=== PATIENT | female | born 1950 | race Caucasian/White ===

== ENCOUNTER 2017-08-31 20:13 | Observation (INO) | payer OTHER ==
[2017-08-31] MEDS ORDERED: NS 0.9% 1000 ML*IV.FLUID IV ONE (20:45)
[2017-08-31 21:27] LABS: Hematocrit 41 % (35-47); Hemoglobin 13.9 g/dl (12.0-16.0); Mean Corpuscular HGB Conc 34 g/dl (31-36); Mean Corpuscular Hemoglobin 30 pg (27-31); Mean Corpuscular Volume 90 fL (80-97); Mean Platelet Volume 8.9 um3 (7.4-10.4); Platelet Count 231 10^3/ul (150-450); Red Blood Count 4.62 10^6/ul (4.00-5.40); Red Cell Distribution Width 14 % (10.5-15)
--- NOTE | 2017-08-31 21:33 | ED ---
Neurological HPI - HPI Summary HPI Summary: This is scribe Ravindra Maxwell documenting for attending Dr. Ortega Smith MD. A 67 y/o female presents to ED c/o dizziness reaching 8/10 in severity. According to the patient, she has been experiencing intermittent dizziness for the past 2-3 weeks lasting about a minute, however the dizziness has become worst today. Additional symptoms include abdominal pain and appetite changes for the last 3 days (not currently). She stated that she was laying in bed when her head started hurting on Monday which led her to go to [facility] in [place]. No treatment was done at [facility]. She comes to the ED today because of headache and dizziness. Pt denies any chest pain, shakes, chills, burning/ pain with urination, fever or LOC. She characterizes the dizziness as "room- spinning" and "vertigo-like". She noted that she has trouble walking and standing/ambulance aggravates the symptoms. If she is laying down, she exhibits no dizziness. It was noted that in triage, the patients blood pressure was low, however, she noted that normally it is usually high. Pt was diagnosed with a UTI on 08/28/2017, at [facility]. She is currently on antibiotics. - History of Current Complaint Chief Complaint: EDDizziness Stated Complaint: DIZZINESS/FELL 2X Time Seen by Provider: 08/31/17 20:38 Hx Obtained From: Patient Onset/Duration: Sudden Onset, Started weeks ago, Still Present - Intermittent episodes, Worse Since - 2-3 weeks ago Timing: Intermittent Episodes Lasting: - 1 minute Current Severity: Severe - 8/10 Pain Intensity: 8 Pain Scale Used: 0-10 Numeric Character: Room Spinning, Other: - "Vertigo-like". - Allergy/Home Medications Allergies/Adverse Reactions: Allergies Allergy/AdvReac Type Severity Reaction Status Date / Time No Known Allergies Allergy Verified 08/10/15 00:05 Home Medications: Home Medications Atorvastatin* [Lipitor*] 40 mg PO DAILY 08/31/17 [History Confirmed 08/31/17] Gabapentin CAP(*) [Neurontin 100 mg CAP(*)] 200 mg PO BID 08/31/17 [History Confirmed 08/31/17] Hydrochlorothiazide TAB* [Hydrodiuril TAB*] 25 mg PO DAILY 08/31/17 [History Confirmed 08/31/17] Lisinopril TAB* [Prinivil TAB*] 10 mg PO DAILY 08/31/17 [History Confirmed 08/31] Metoprolol Succinate XL TAB* [Toprol XL TAB*] 25 mg PO DAILY 08/31/17 [History Confirmed 08/31/17] Omeprazole CAP* [Prilosec CAP* 20 MG] 20 mg PO BID 08/31/17 [History Confirmed 08/31/17] glipiZIDE TAB* [Glucotrol TAB*] 5 mg PO DAILY 08/31/17 [History Confirmed ] Aspirin 81 mg CHEW TAB* 81 mg PO DAILY 09/01/17 [History Confirmed 09/01/17] Ciprofloxacin HCl [Cipro 500 MG TAB] 500 mg PO TID 09/01/17 [History Confirmed 09/01/17] metFORMIN* [Glucophage 500 MG TAB *] 500 mg PO BID 09/01/17 [History Confirmed 09/01/17] PMH/Surg Hx/FS Hx/Imm Hx Endocrine/Hematology History: Denies: Hx Diabetes Respiratory History: Denies: Hx Asthma - Surgical History Surgery Procedure, Year, and Place: Tubal Ligation - approximately 1984, [facility] Infectious Disease History: No Infectious Disease History: Denies: Traveled Outside the [place] in Last 30 Days - Family History Known Family History: Negative: Diabetes - Social History Alcohol Use: unable to assess Substance Use Type: Reports: None Hx Tobacco Use: No Smoking Status (MU): Unknown if Ever Smoked Review of Systems Positive: Chills, Other - NEGATIVE: Shakes. Negative: Fever Negative: Chest Pain Positive: Other - NEGATIVE: Appetite changes. Negative: Abdominal Pain Negative: burning, pain Neurological: Other - POSITIVE: Dizziness; NEGATIVE: LOC Negative: Headache All Other Systems Reviewed And Are Negative: Yes Physical Exam - Summary Physical Exam Summary: Appearance: Well-appearing, Well-nourished, lying in bed comfortably Skin: Warm, dry, no obvious rash Eyes: sclera anicteric, no conjunctival pallor ENT: mucous membranes moist, pharynx appears normal Neck: Supple, nontender Respiratory: Clear to auscultation, no signs of respiratory distress Cardiovascular: Normal S1, S2. No murmurs. Normal distal pulses in tibial and radial bilaterally. Abdomen: Soft, nontender, normal active bowel sounds present Musculoskeletal: Normal, Strength/ROM Intact Neurological: A&Ox3, awake and alert, mentation is normal, speech is fluent and appropriate Psychiatric: affect is normal, does not appear anxious or depressed GCS: 15 Triage Information Reviewed: Yes Vital Signs On Initial Exam: Initial Vitals Temp Pulse Resp BP Pulse Ox 97.6 F 70 14 80/54 95 08/31/17 20:25 08/31/17 20:25 08/31/17 20:25 08/31/17 20:25 08/31/17 20:25 Vital Signs Reviewed: Yes Diagnostics - Vital Signs Vital Signs Temp Pulse Resp BP Pulse Ox 08/31/17 20:25 97.6 F 70 14 80/54 95 - Laboratory Lab Results: Lab Results 08/31/17 Range/Units 21:15 WBC 12.0 H (3.5-10.8) 10^3/ul RBC 4.62 (4.00-5.40) 10^6/ul Hgb 13.9 (12.0-16.0) g/dl Hct 41 (35-47) % MCV 90 (80-97) fL MCH 30 (27-31) pg MCHC 34 (31-36) g/dl RDW 14 (10.5-15) % Plt Count 231 (150-450) 10^3/ul MPV 8.9 (7.4-10.4) um3 Neut % (Auto) Pending Lymph % (Auto) Pending Harvey % (Auto) Pending Eos % (Auto) Pending Baso % (Auto) Pending Absolute Neuts (auto) Pending Absolute Lymphs (auto) Pending Absolute Monos (auto) Pending Absolute Eos (auto) Pending Absolute Basos (auto) Pending Absolute Nucleated RBC Pending Nucleated RBC % Pending Result Diagrams: 08/31/17 21:15 09/01/17 15:22 Lab Statement: Any lab studies that have been ordered have been reviewed, and results considered in the medical decision making process. - CT BRAIN CT CT Interpretation Completed By: Radiologist - 1. No evidence of acute intracranial hemorrhage. No intracranial mass or obstructive hydrocephalus. 2. Low-density area in the anterior aspect of the left basal ganglia and consistent with an old infarct. ED PHYSICIAN REVIEWED THIS RADIOLOGY REPORT. - EKG 2038 Cardiac Rate: NL - 67 BPM EKG Rhythm: Sinus Rhythm Re-Evaluation - Re-Evaluation First Eval Re-Evaluation Time: 20:16 Change: Unchanged Course/Dx - Course Course Of Treatment: This is a 67-year-old woman who came to the ED with a chief complaint of dizziness of a vertiginous character. There is no concern at this point for a central cause of her vertigo, however she also has had some intermittent hypotension and is being treated for UTI. Her urinalysis here still shows evidence of infection. Her lactate is only minimally elevated, and the patient does not appear septic, however she probably should be admitted for observation and a dose of IV antibiotics. I will discuss the case with the hospitalist covering tonight. - Diagnoses Provider Diagnoses: UTI (urinary tract infection), Hypotension - Physician Notifications Discussed Care Of Patient With: Kenyatta Locke Time Discussed With Above Provider: 02:20 Instructed by Provider To: Other - Accepts for admission. Discharge - Sign-Out/Discharge Documenting (check all that apply): Patient Departure - ADMIT - Discharge Plan Condition: Stable Disposition: ADMITTED TO [facility] - Billing Disposition and Condition Condition: STABLE Disposition: Admitted to [facility]
[2017-08-31 21:46] LABS: EGFR Non-African American 12.7 (>60)
[2017-08-31 22:03] LABS: ABS Basophils 0.1 10^3/ul (0-0.2); ABS Eosinophils 0.2 10^3/ul (0-0.6); ABS Lymphocytes 3.8 10^3/ul (1.0-4.8); ABS Monocytes 1.8 10^3/ul (0-0.8); ABS Neutrophils 6.1 10^3/ul (1.5-7.7); ABS Nucleated RBC 0 10^3/ul; Eosinophil % 1.3 % (0-6); Nucleated Red Blood Cells % 0.1
[2017-08-31] MEDS ORDERED: Meclizine TAB* 12.5 MG PO ONE (22:09)
[2017-08-31 23:31] LABS: Urine Appearance Cloudy; Urine Blood Negative (Negative); Urine Color Amber; Urine Ketones Negative (Negative); Urine Protein Negative (Negative); Urine Red Blood Cell Trace(0-2/hpf) (Absent); Urine Specific Gravity 1.019 (1.010-1.030); Urine Urobilinogen Negative (Negative); Urine White Blood Cell 3+(>20/hpf) (Absent)
[2017-09-01] MEDS ORDERED: cefTRIAXone(*) 1 GM in NS 0.9% 50 ML* 50 ML IVPB ONE (01:46)
[2017-09-01] MEDS ORDERED: Ondansetron INJ* 2 MG/ML VIAL IV PRN (03:49)
[2017-09-01] MEDS ORDERED: Morphine INJ** 4 MG/ML 1 ML CARPUJECT IV PRN (03:49)
[2017-09-01] MEDS ORDERED: Dextrose 50% Syringe 50 ML* 25 GM/50 ML SYRINGE IV PUSH PRN (04:16)
[2017-09-01] MEDS: Heparin VIAL(*) 5000 UNITS/ML VIAL (FIVE THOUSAND) SUBCUT SCH ×3 (05:24→22:35)
[2017-09-01] MEDS: NS 0.9% 1000 ML* 1,000 ML IV SCH ×3 (05:25→21:45)
--- NOTE | 2017-09-01 07:22 | RAD ---
INDICATION: Vertigo for 3 weeks. COMPARISON: Comparison is made with a prior CT of the brain from April 11, 2015. TECHNIQUE: Contiguous axial sections of the brain were obtained from the skull base to the vertex without contrast. FINDINGS: The ventricles, cisterns and sulci are enlarged consistent with age-related atrophy. There are small areas of decreased density in the subcortical and periventricular white matter suggestive of mild chronic small vessel ischemic changes. There is a small focal area of decreased density present adjacent to the left caudate nucleus head possibly representing an old lacunar infarct. There is no evidence for hemorrhage. No significant focal osseous abnormality is seen. The visualized portion of the paranasal sinuses and mastoid air cells appear clear. IMPRESSION: 1. NO EVIDENCE FOR GROSS ACUTE INFARCT, MASS EFFECT OR HEMORRHAGE. 2. 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
[2017-09-01] MEDS: Insulin LISPRO* 1 UNITS UNIT SUBCUT SCH ×4 (08:05→20:28)
--- NOTE | 2017-09-01 08:07 | PN ---
Subjective Date of Service: 09/01/17 Interval History: Patient seen and examined at bedside. Denies fever, chills, shortness of breath , chest discomfort, N/V/D, urinary symptoms (urgency, increased frequency, dysuria). Pt states that she has low back pain from the bed. She reports feeling much better than when she came in and would like to go home later today if possible. Family History: Unchanged from Admission Social History: Unchanged from Admission Past Medical History: Unchanged from Admission Objective Active Medications: Atorvastatin Calcium (Lipitor*) 40 mg PO DAILY [facility] Dextrose (D50w Syringe 50 Ml*) 12.5 gm IV PUSH .FOR FS < 60 - SS PRN Reason: FS < 60 Gabapentin (Neurontin Cap(*)) 200 mg PO BID [facility] Heparin Sodium (Porcine) (Heparin Vial(*)) 5,000 units SUBCUT Q8HR [facility] Sodium Chloride (Ns 0.9% 1000 Ml*) 1,000 mls @ 100 mls/hr IV PER RATE [facility] Ceftriaxone Sodium 1 gm/ (Sodium Chloride) 50 mls @ 200 mls/hr IVPB Q24H [facility] Insulin Human Lispro (Humalog*) 0 units SUBCUT ACHS JAIME; Protocol Metoprolol Succinate (Toprol Xl Tab*) 25 mg PO DAILY [facility] Morphine Sulfate (Morphine Inj (Syringe)) 2 mg IV Q4H PRN Reason: PAIN - MILD Omeprazole (Prilosec Cap*) 20 mg PO BID [facility] Ondansetron HCl (Zofran Inj*) 4 mg IV Q6H PRN Reason: NAUSEA Vital Signs - 8 hr 09/01/17 09/01/17 09/01/17 00:13 00:42 01:00 Temperature Pulse Rate 71 71 70 Respiratory 19 12 22 Rate Blood Pressure 102/60 101/60 (mmHg) O2 Sat by Pulse 100 98 97 Oximetry 09/01/17 09/01/17 09/01/17 01:13 01:43 02:00 Temperature Pulse Rate 71 73 73 Respiratory 10 13 16 Rate Blood Pressure 112/72 113/62 (mmHg) O2 Sat by Pulse 98 95 97 Oximetry 09/01/17 09/01/17 09/01/17 02:12 02:44 03:00 Temperature Pulse Rate 74 69 69 Respiratory 7 16 18 Rate Blood Pressure 110/62 108/65 (mmHg) O2 Sat by Pulse 96 97 98 Oximetry 09/01/17 09/01/17 09/01/17 03:13 03:43 04:00 Temperature Pulse Rate 67 66 63 Respiratory 17 18 14 Rate Blood Pressure 106/64 99/62 (mmHg) O2 Sat by Pulse 97 96 97 Oximetry 09/01/17 09/01/17 09/01/17 04:08 04:13 04:40 Temperature 98.9 F 97.3 F Pulse Rate 66 65 71 Respiratory 20 16 20 Rate Blood Pressure 122/67 113/69 113/69 (mmHg) O2 Sat by Pulse 98 97 98 Oximetry Oxygen Devices in Use Now: None Appearance: NAD, sitting up in bed Ears/Nose/Mouth/Throat: Mucous Membranes Moist Respiratory: Symmetrical Chest Expansion and Respiratory Effort, Clear to Auscultation Cardiovascular: NL Sounds; No Murmurs; No JVD, RRR Extremities: No Edema Skin: No Rash or Ulcers Neurological: Alert and Oriented x 3, NL Muscle Strength and Tone Lines/Tubes/Other Access: Clean, Dry and Intact Peripheral IV - site benign Nutrition: Taking PO's Result Diagrams: 08/31/17 21:15 08/31/17 21:15 Additional Lab and Data: . Assess/Plan/Problems-Billing Assessment: Ms. Machado is a 67 yo female with PMH singificant for HTN, HLD, diverticulitis and DM who presented to the emergency room with complaints of falls, lightheadedness and recent dx of UTI. - Patient Problems (1) Acute renal failure Comment: - Suspect secondary to dehydration - Continue IVFs (2) UTI (urinary tract infection) Comment: - Afebrile, mild leukocytosis - No sepsis at this time - 08/28 urine culture with E coli that was pansensitive - Blood cultures, pending - Urine culture pending at this time - Continue ceftriaxone (3) Hypotension Comment: - BP improving - Suspect secondary to poor PO intake while being on multiple BP medications - Continue to monitor BP and hold Lisinopril and HCTZ (4) Lactic acidosis Code(s): E87.2 - ACIDOSIS SNOMED Code(s): 98801608 Comment: - Resolved with IVFs (5) Diabetes Code(s): E11.9 - TYPE 2 DIABETES MELLITUS WITHOUT COMPLICATIONS SNOMED Code(s) : 28175586 Comment: - Glucose 70-100's - Continue Lispro SS - Resume metformin and glipizide at discharge (6) HTN (hypertension) Code(s): I10 - ESSENTIAL (PRIMARY) HYPERTENSION SNOMED Code(s): 48151476 Comment: - SBP 90-120's - Continue metoprolol (with hold parameters) - Hols lisinopril and HCTZ (7) HLD (hyperlipidemia) Code(s): E78.5 - HYPERLIPIDEMIA, UNSPECIFIED SNOMED Code(s): 92805789 Comment: - Continue Atorvastatin (8) DVT prophylaxis Code(s): PLV7074 - SNOMED Code(s): 112579716 Comment: - SQ heparin (9) Full code status Code(s): Z78.9 - OTHER SPECIFIED HEALTH STATUS SNOMED Code(s): 956806666 Status and Disposition: OBV. Discharge to home when medically stable.
--- NOTE | 2017-09-01 08:09 | RAD ---
INDICATION: Abdominal pain. Acute renal failure. Question urolithiasis. COMPARISON: August 10, 2015 CT TECHNIQUE: Multidetector CT images were obtained from the lung bases to the ischial tuberosities. Evaluation of the viscera is limited without IV contrast. Multiplanar reformation. REPORT: Cardiomegaly and coronary artery calcifications. Clear visualized lung bases. Decreased density of the liver consistent with hepatosteatosis with focal sparing at the gallbladder fossa. No focal liver lesions evident. Normally distended gallbladder with dependent intermediate density contents which may represent stones or sludge. Negative for biliary dilatation. Unremarkable pancreas and spleen. Negative for CT abnormality of the upper GI, small bowel, or appendix. Moderate colonic diverticulosis without findings of acute diverticulitis. Negative for ascites or free air. Small fat-containing supraumbilical ventral hernia and moderate umbilical level fat-containing hernia without inflammatory change. Normal adrenal glands. Negative for urolithiasis or hydronephrosis. No conspicuous focal renal lesions. Unremarkable partially distended urinary bladder. Unremarkable anteverted uterus and adnexal regions. Negative for lymphadenopathy. Normal diameter abdominal aorta and iliac arteries with mild calcific plaque. Physiologic partial distention of the IVC. Negative for suspicious osseous lesions. IMPRESSION: #. Hepatosteatosis. #. Probable sludge or stones in the gallbladder; consider ultrasound for further assessment if deemed appropriate. #. Negative for biliary dilatation. #. Negative for urolithiasis or hydronephrosis. Negative for renal cortical atrophy. #. Atherosclerotic plaque. Negative for aneurysm of the abdominal aorta. Negative for conspicuous calcific plaque at the origins of the renal arteries. R0
[2017-09-01] MEDS: Gabapentin CAP(*) 100 MG PO SCH ×2 (09:52→20:28)
[2017-09-01] MEDS: Metoprolol Succinate XL TAB* 25 MG PO SCH (09:53)
[2017-09-01] MEDS: Omeprazole CAP* 20 MG PO SCH ×2 (09:53→20:28)
[2017-09-01] MEDS: Atorvastatin* 40 MG TAB PO SCH (09:53)
--- NOTE | 2017-09-01 11:19 | HP ---
CC: Dr. Salinas * HISTORY AND PHYSICAL: DATE OF ADMISSION: 09/01/17 PRIMARY CARE PROVIDER: Dr. Salinas. CHIEF COMPLAINT: Fall and dizziness. HISTORY OF PRESENT ILLNESS: Ms. Machado is a 67-year-old female with a history of type 2 diabetes, hypertension, and hyperlipidemia, who on 08/28/17 was diagnosed with urinary tract infection. The patient states that for the last 3 to 4 days she has had essentially no appetite whatsoever. She has had severe abdominal pain that had been sharp across her abdomen. She states that when she woke up on the morning prior to admission she noted the pain was unexpectedly gone and she finally had an appetite, however, again this after 3 to 4 days of not really eating or drinking much. The patient states that on the day prior to admission she was getting up and walking when she suddenly felt very dizzy. She was able to steady herself, initially on railing, however , with the second episode of dizziness that she had, she fell to the ground. She denied any loss of consciousness. At this point, the patient states that the dizziness has resolved. PAST MEDICAL HISTORY: 1. Type 2 diabetes. 2. Hypertension. 3. Hyperlipidemia. PAST SURGICAL HISTORY: Tubal ligation. MEDICATIONS: 1. Glipizide 5 mg p.o. daily. 2. Hydrochlorothiazide 25 mg p.o. daily. 3. Lisinopril 10 mg p.o. daily. 4. Metformin 500 mg p.o. b.i.d. 5. Lipitor 40 mg p.o. daily. 6. Gabapentin 200 mg p.o. b.i.d. 7. Metoprolol XL 25 mg p.o. daily. 8. Omeprazole 20 mg p.o. b.i.d. ALLERGIES: No known drug allergies. FAMILY HISTORY: Mom at age of 85 with complications from diabetes. Dad in the 70s, he also had diabetes. SOCIAL HISTORY: The patient is a nonsmoker. She does not drink alcohol. She is housewife. She is . She has 3 children. She indicates her youngest daughter, Martha Hawley, is her healthcare proxy. REVIEW OF SYSTEMS: Complete 11-system review of systems is obtained. Pertinent positives and negatives are as per HPI and in addition, the patient does state that she has had sweats and chills over the last few days; otherwise review of systems is negative. PHYSICAL EXAMINATION GENERAL: The patient is a well-developed, obese, middle-aged female seen lying in the stretcher, in no acute distress. VITAL SIGNS: Blood pressure 108/65, pulse 69, respirations 16, temp 97.6, O2 sat 97% on 2 L. HEENT: Pupils are equal and round. Extraocular muscles are intact. Oropharynx is clear. Oral mucosa is moist. There is no submandibular, cervical , or supraclavicular adenopathy. Thyroid is not enlarged. No thyroid nodules are noted. PULMONARY: There are few crackles at the bases bilaterally. CARDIAC: Normal S1, S2. Regular rate and rhythm. I do not appreciate any murmurs. There is no lower extremity edema. ABDOMEN: Bowel sounds are present. Abdomen is soft, nondistended. She is mildly tender to palpation in the right upper quadrant. There is negative Cortes sign. MUSCULOSKELETAL: There is no cyanosis or clubbing of the digits. There is full active range of motion of all 4 extremities. NEUROLOGIC: Cranial nerves II through XII are grossly intact. Sensation is intact to light touch throughout. Strength is 5/5 and symmetric in both upper and lower extremities bilaterally. PSYCH: The patient is alert. She is oriented x3. Affect appears appropriate. SKIN: Warm and dry. There are no rashes. DIAGNOSTIC STUDIES/LAB DATA: WBC 12.0, hemoglobin 13.9, hematocrit 41, platelets 231. Sodium 135; potassium 4.1; chloride 99; CO2 of 26; BUN 58; creatinine 3.60; glucose 75; lactic acid 2.1, recheck down to 1.7, calcium 9.5. Bilirubin 0.4, AST 24, ALT 31, alk phos 45. Albumin 4.0. Urinalysis reveals cloudy urine with specific gravity of 1.019, positive for nitrites, leukocyte esterase, white blood cells, bacteria, and hyaline cast. EKG reveals normal sinus rhythm without any acute ST-T wave abnormalities. CT brain: No evidence of acute intracranial hemorrhage, no intracranial mass or obstructive hydrocephalus. Low density area in the anterior aspect of the left basal ganglia consistent with an old infarct. ASSESSMENT AND PLAN: Ms. Machado is a 67-year-old female with history of hypertension, type 2 diabetes, and hyperlipidemia, who presents to the emergency room with complaints of dizziness and fall and was found to be hypotensive with persistent urinary tract infection. 1. Hypotension. I suspect the patient's hypotension is related to very poor oral intake over the last 3 to 4 days. The patient does have urinary tract infection; however, she does not appear to be septic from this. The patient will receive normal saline at 100 mL per hour. She has already received 1 L in the emergency room. I am going to hold her lisinopril and hydrochlorothiazide given her renal failure. We will monitor her blood pressure. I had placed hold parameters on her metoprolol XL. 2. Acute renal failure. The patient's baseline creatinine is not completely clear but likely around 1.1. The creatinine today is markedly elevated at 3.6 with hyaline cast on urinalysis. This is likely secondary to prerenal state. It could be a component of acute tubular necrosis as the patient found to have been with poor oral intake for several days. The patient will be receiving IV fluids as above. Additionally, I will hold the patient's metformin, lisinopril , and hydrochlorothiazide, all of which may have contributed as well. 3. Urinary tract infection. The patient was diagnosed of UTI on 08/28/17. She was started on ciprofloxacin. She states that she started the medication right after it was prescribed. Her urinalysis is still markedly abnormal. She grew E. coli from the urine sample on the . This was pansensitive and should have responded to Cipro she was started on, however, it appears that is not the case. The patient received ceftriaxone in the emergency room and we will continue on this. Additionally, I will obtain a CT scan without contrast of the abdomen and pelvis to evaluate for possible kidney stone especially given the pain that she had for the 3 to 4 days prior and to ensure that there is no evidence of renal abscess or pyelonephritis, which both seem unlikely. 4. Type 2 diabetes. The patient's blood sugar was normal on labs obtained in the emergency room. I am going to hold her glipizide and metformin. She will be placed on lispro sliding scale. 5. Hyperlipidemia. We will continue Lipitor. 6. DVT prophylaxis. According to the Adult Thrombosis Prophylaxis Risk Factor Assessment Guide, the patient has a total risk factor score of 3, making her high risk. She will be placed on heparin 5000 units subcutaneous q.8 hours. 7. Code status is full. TIME SPENT: Sixty-five minutes was spent admitting this patient, of which greater than half was spent [id number] with the patient reviewing her history and performing physical exam. [id number]/[facility] #: [id number] ARNEL
[2017-09-01 16:09] LABS: EGFR Non-African American 30.2 (>60)
[2017-09-01] MEDS: Nystatin TOP POWDER* 15 GM BTL TOPICAL SCH ×2 (16:49→20:51)
[2017-09-02] MEDS ORDERED: cefTRIAXone(*) 1 GM in NS 0.9% 50 ML* 50 ML IVPB SCH (03:00)
[2017-09-02] MEDS: Heparin VIAL(*) 5000 UNITS/ML VIAL (FIVE THOUSAND) SUBCUT SCH (05:48)
[2017-09-02 06:20] LABS: Hematocrit 38 % (35-47); Hemoglobin 12.8 g/dl (12.0-16.0); Mean Corpuscular HGB Conc 34 g/dl (31-36); Mean Corpuscular Hemoglobin 30 pg (27-31); Mean Corpuscular Volume 90 fL (80-97); Platelet Count 174 10^3/ul (150-450); Red Blood Count 4.25 10^6/ul (4.00-5.40); Red Cell Distribution Width 14 % (10.5-15); White Blood Count 6.6 10^3/ul (3.5-10.8)
[2017-09-02 06:38] LABS: EGFR Non-African American 41.1 (>60)
[2017-09-02 06:46] LABS: ABS Basophils 0 10^3/ul (0-0.2); ABS Eosinophils 0.2 10^3/ul (0-0.6); ABS Lymphocytes 2.4 10^3/ul (1.0-4.8); ABS Monocytes 0.8 10^3/ul (0-0.8); ABS Neutrophils 3.2 10^3/ul (1.5-7.7); ABS Nucleated RBC 0 10^3/ul
[2017-09-02 06:48] LABS: ABS Basophils 0.1 10^3/ul (0-0.2); ABS Neutrophils 3.2 10^3/ul (1.5-7.7); Monocytes % 5 % (0-7)
[2017-09-02] MEDS: Insulin LISPRO* 1 UNITS UNIT SUBCUT SCH ×2 (07:37→10:46)
[2017-09-02] MEDS: NS 0.9% 1000 ML* 1,000 ML IV SCH (07:57)
[2017-09-02] MEDS: Metoprolol Succinate XL TAB* 25 MG PO SCH (07:58)
[2017-09-02] MEDS: Omeprazole CAP* 20 MG PO SCH (07:59)
[2017-09-02] MEDS: Atorvastatin* 40 MG TAB PO SCH (07:59)
[2017-09-02] MEDS: Gabapentin CAP(*) 100 MG PO SCH (07:59)
[2017-09-02] MEDS: Nystatin TOP POWDER* 15 GM BTL TOPICAL SCH (08:05)
--- NOTE | 2017-09-02 08:14 | PN ---
Subjective Date of Service: 09/02/17 Interval History: Patient seen and examined at bedside. Denies fever, chills, shortness of breath , chest discomfort, N/V/D, urinary symptoms, abdominal pain. Pt states that she is feeling well this morning and is anxious to get home today. Family History: Unchanged from Admission Social History: Unchanged from Admission Past Medical History: Unchanged from Admission Objective Active Medications: Aspirin (Aspirin 81 Mg Chew Tab*) 81 mg PO DAILY [facility] Atorvastatin Calcium (Lipitor*) 40 mg PO DAILY [facility] Dextrose (D50w Syringe 50 Ml*) 12.5 gm IV PUSH .FOR FS < 60 - SS PRN Reason: FS < 60 Gabapentin (Neurontin Cap(*)) 200 mg PO BID [facility] Heparin Sodium (Porcine) (Heparin Vial(*)) 5,000 units SUBCUT Q8HR [facility] Sodium Chloride (Ns 0.9% 1000 Ml*) 1,000 mls @ 100 mls/hr IV PER RATE [facility] Ceftriaxone Sodium 1 gm/ (Sodium Chloride) 50 mls @ 200 mls/hr IVPB Q24H [facility] Insulin Human Lispro (Humalog*) 0 units SUBCUT ACHS JAIME; Protocol Metoprolol Succinate (Toprol Xl Tab*) 25 mg PO DAILY [facility] Morphine Sulfate (Morphine Inj (Syringe)) 2 mg IV Q4H PRN Reason: PAIN - MILD Nystatin (Nystatin Top Powder*) 1 applic TOPICAL TID JAIME Omeprazole (Prilosec Cap*) 20 mg PO BID [facility] Ondansetron HCl (Zofran Inj*) 4 mg IV Q6H PRN Reason: NAUSEA Vital Signs - 8 hr 09/02/17 09/02/17 09/02/17 01:00 07:21 07:59 Temperature 97.9 F Pulse Rate 57 Respiratory 16 16 18 Rate Blood Pressure 123/72 (mmHg) O2 Sat by Pulse 97 Oximetry Oxygen Devices in Use Now: None Appearance: NAD, sitting up in bed Ears/Nose/Mouth/Throat: Mucous Membranes Moist Respiratory: Symmetrical Chest Expansion and Respiratory Effort, Clear to Auscultation Cardiovascular: NL Sounds; No Murmurs; No JVD, RRR Abdominal: NL Sounds; No Tenderness; No Distention Extremities: No Edema Skin: No Rash or Ulcers Neurological: Alert and Oriented x 3, NL Muscle Strength and Tone Lines/Tubes/Other Access: Clean, Dry and Intact Peripheral IV - site benign Nutrition: Taking PO's Result Diagrams: 09/02/17 06:07 09/02/17 06:07 Additional Lab and Data: . Assess/Plan/Problems-Billing Assessment: Ms. Machado is a 67 yo female with PMH singificant for HTN, HLD, diverticulitis and DM who presented to the emergency room with complaints of falls, lightheadedness and recent dx of UTI. - Patient Problems (1) Acute renal failure Comment: - Improving with IVFs - Suspect secondary to dehydration - Continue IVFs (2) UTI (urinary tract infection) Comment: - Afebrile, mild leukocytosis - No sepsis at this time - 08/28 urine culture with E coli that was pansensitive - Urine culture no growth - Discontinue ceftriaxone (3) Hypotension Comment: - Resolved - Suspect secondary to poor PO intake while being on multiple BP medications - Continue to monitor BP and hold Lisinopril and HCTZ (4) Lactic acidosis Code(s): E87.2 - ACIDOSIS SNOMED Code(s): 55824699 Comment: - Resolved with IVFs (5) Abdominal pain Code(s): R10.9 - UNSPECIFIED ABDOMINAL PAIN SNOMED Code(s): 09405081 Comment: - Resolved - Suspect secondary to UTI vs GB - ABD CT scan shows sludge - Will check GB US (6) Diabetes Code(s): E11.9 - TYPE 2 DIABETES MELLITUS WITHOUT COMPLICATIONS SNOMED Code(s) : 34631271 Comment: - Glucose 100-130's - Continue Lispro SS - Resume metformin and glipizide at discharge (7) HTN (hypertension) Code(s): I10 - ESSENTIAL (PRIMARY) HYPERTENSION SNOMED Code(s): 82603832 Comment: - SBP 90-120's - Continue metoprolol (with hold parameters) - Hold lisinopril and HCTZ (8) HLD (hyperlipidemia) Code(s): E78.5 - HYPERLIPIDEMIA, UNSPECIFIED SNOMED Code(s): 26956458 Comment: - Continue Atorvastatin (9) DVT prophylaxis Code(s): MLW9949 - SNOMED Code(s): 304794418 Comment: - SQ heparin (10) Full code status Code(s): Z78.9 - OTHER SPECIFIED HEALTH STATUS SNOMED Code(s): 968826221 Status and Disposition: OBV. Discharge to home when medically stable, possibly later today
[2017-09-02] MEDS ORDERED: Aspirin 81 mg CHEW TAB* 81 MG TAB.CHEW PO SCH (09:00)
--- NOTE | 2017-09-02 09:20 | RAD ---
Indication: Abdominal pain. CT of one day prior remarkable for probable stones or sludge in the gallbladder. Comparison: September 01, 2017 CT. Technique: RIGHT upper quadrant ultrasound. Report: Appropriate direction flow documented in the portal and hepatic veins. 18.6 cm liver is increased in echogenicity. Negative for focal hepatic lesions. Negative for intrahepatic biliary dilatation. 6.0 mm common bile duct within normal limits. Adequately distended gallbladder is remarkable for a small volume of dependent hyperdense biliary sludge. No conspicuous shadowing foci to indicate cholelithiasis. Normal 2.5 mm gallbladder wall thickness. Negative for pericholecystic fluid or sonographic Cortes's sign. The pancreatic tail is partially obscured due to bowel gas with the visualized pancreas unremarkable. Negative for ascites. 11.4 cm RIGHT kidney is unremarkable. IMPRESSION: #. Top normal liver size with hepatosteatosis. #. Small volume of dependent biliary sludge in the gallbladder without additional sonographic abnormality of the gallbladder.
[2017-09-02 12:34] VITALS: BP 120/70
--- NOTE | 2017-09-02 23:43 | DS ---
CC: Dr. Frederick Salinas.* DISCHARGE SUMMARY: DATE OF ADMISSION: 09/01/17. DATE OF DISCHARGE: 09/02/17. ATTENDING PHYSICIAN: Dr. Carol Moore * (dictated by Jessica Kolb NP). PRIMARY CARE PROVIDER: Dr. Frederick Salinas. PRIMARY DIAGNOSES: 1. Abdominal pain, suspect secondary to Cipro. 2. Acute renal failure, improving. 3. Elevated lactic acid, resolved. SECONDARY DIAGNOSES: 1. Type 2 diabetes mellitus. 2. Hypertension. 3. Hyperlipidemia. STUDIES WHILE IN THE HOSPITAL: Brain CT on the 08/31/17. Radiologist's impression: No evidence for gross acute infarct, mass affect or hemorrhage. Possible old lacunar infarct adjacent to the left caudate nucleus. Abdomen, pelvic CT on 09/01/17. Radiologist's impression: Hepatosteatosis, probable sludge or stones in the gallbladder, consider ultrasound for further assessment if deemed appropriate. Negative for biliary dilation. Negative for urolithiasis or hydronephrosis. Negative for renal cortical atrophy, atherosclerotic plaque, negative for aneurysm of the abdominal aorta, negative for conspicuous calcific plaque at the origin of the renal arteries. Gallbladder ultrasound from 09/02/17. Radiologist's impression: Top normal liver size with hepatosteatosis, small volume of dependent biliary sludge in the gallbladder without additional sonographic abnormality of the gallbladder. DISCHARGE MEDICATIONS: Continued home medications: 1. Gabapentin 300 mg oral twice daily. 2. Lisinopril 10 mg oral daily. 3. Omeprazole 20 mg oral daily. 4. Hydrochlorothiazide 25 mg oral daily. 5. Metoprolol succinate 25 mg oral daily. 6. Atorvastatin 40 mg oral daily. 7. Glipizide 5 mg oral daily. 8. Metformin 500 mg oral twice daily. 9. Aspirin 81 mg oral daily. Discontinued home medications: Cipro. HISTORY OF PRESENT ILLNESS/HOSPITAL COURSE: Ms. Machado is a 67-year-old female with a past medical history significant for diabetes mellitus type 2, hypertension, hyperlipidemia, who was initially diagnosed on 08/28/17 with a urinary tract infection. The patient was started on Cipro. After starting the Cipro, the patient had a 3 or 4 days of essentially no appetite, accompanied with severe abdominal pain that was sharp across her abdomen. On the morning prior to her admission, the pain was unexpectedly gone and she finally had her appetite returned. The patient also reported on the day prior to her presentation of an episode of feeling dizzy while walking. She was able to steady herself initially on a railing and had a second episode of dizziness and fell to the ground. She denied any loss of consciousness. Due to her symptoms , she presented to the emergency room for further evaluation. While in the emergency room, the patient had a CT of her brain with no acute findings. She had an EKG without acute findings. She had labs which were fairly unremarkable. She had a mild leukocytosis with a WBC count of 12, lactic acid of 2.1; on recheck, it was trending down to 1.7. She had normal liver function test. She had a urinalysis revealing cloudy urine with a specific gravity of 1.019, positive for nitrite, leukocyte esterase, white blood cells, bacteria and hyaline cast. The hospitalists were asked to evaluate the patient for admission. During the patient's stay, her hypotension resolved. It was felt this is secondary to her poor oral intake over the last 3 to 4 days prior to her presentation. She received IV fluids. Her lisinopril and hydrochlorothiazide were held. The patient was also found to have acute renal failure. It was unclear what her baseline creatinine was, but it appeared to be around 1.1 and was markedly elevated at 3.6 on admission. Her creatinine trended down during her stay with IV fluids to 1.3. It was felt that her acute renal failure was likely secondary to poor oral intake. Additionally, the patient was on metformin, lisinopril and hydrochlorothiazide, which were all likely contributing to the acute renal failure. The patient's initial urinalysis appeared as though she may have an untreated urinary tract infection. She was switched from Cipro to ceftriaxone. The patient's urine culture grew no growth , and her ceftriaxone was discontinued. During her stay, she had no recurrence of the abdominal discomfort that she has had previously. It was felt this could likely have been secondary to the Cipro she was taking. She did have an abdominal ultrasound showing some biliary sludge. She had a gallbladder ultrasound also showing slight gallbladder sludge. This could be secondary to the patient not eating for several days prior to her admission. The patient's appetite returned. She has been eating well. She has been afebrile and feeling well. Ms. Machado is stable for discharge today. Vital signs are as follows: Temperature 98.3, heart rate 58, respiratory rate 16, O2 sat 98% on room air, blood pressure 120/70. DISCHARGE PLAN: Ms. Machado will be discharged to home. Activity as tolerated. She will be on a consistent carbohydrate diet. In regards to her acute renal failure, her creatinine is trending down. I recommend doing a repeat creatinine at her follow up to make sure that she continues to trend down. For diabetes, she has been resumed on her home glipizide and metformin. Please continue to follow the patient's creatinine if her creatinine continues to be elevated and remains elevated over 1.5, I recommend discontinuing her metformin and changing to another agent. In regards to the patient's hypertension, she is normotensive and has been resumed on her hydrochlorothiazide and lisinopril. Again, please continue to follow her creatinine while on these medications. If her creatinine continues to be elevated, consider other agents for her hypertension. Again, I suspect that the patient's abdominal pain is secondary to the Cipro that she was taking. She no longer needs antibiotics for her urinary tract infection. The patient has been encouraged to drink plenty of fluids and stay hydrated. The patient has been asked to call Dr. Salinas's office on Monday to set up a followup appointment. The patient has been asked to return to the emergency room for any chest pain, shortness of breath. This is a summarized report of a complex medical history and hospital stay. For further details, please see the entire medical record. TIME SPENT: Time for this discharge was approximately 50 minutes, greater than half of this was spent with the patient discussing discharge plans and instructions. CONDITION ON DISCHARGE: Stable. Reviewed by OLLIE JOSHUA 09/04/17 1123 [id number]/[facility] #: [id number] ARNEL
== END 2017-09-02 14:10 | disposition home or self-care (01) ==
LOC: ED 20:13 → MED 09-01 04:03
PROVIDERS: ADMIT Hospitalist; ATTEND Internal Medicine
DX: R10.9 Unspecified abdominal pain (principal); N17.9 Acute kidney failure, unspecified; R74.0 Nonspecific elevation of levels of transaminase and lactic acid dehydrogenase [LDH]; E11.9 Type 2 diabetes mellitus without complications; I10 Essential (primary) hypertension; E78.5 Hyperlipidemia, unspecified; Z79.82 Long term (current) use of aspirin; Z91.81 History of falling
CPT/HCPCS: 36415; 70450; 74176; 76705; 80048; 80053; 81003; 81015; 83605; 85025; 87086; 93005; 96374; 96375; 99285; A9270-GY; G0378; J0696; J1644

== ENCOUNTER → 2017-12-11 06:07 | Day surgery (SDC) | payer MEDICARE, OTHER ==
[~2017-12-11 06:07] MED LIST: Buffered Lidocaine 0.9% SYRIN* 5 ML/SYR SYRINGE INTRADERM ONE; Bupivacaine 0.25% W/EPI* 10 ML SDV ONE; DiMENhydriNATE IV* 50 MG/ML VIAL IV PUSH ONE; DiMENhydriNATE IV* 50 MG/ML VIAL ONE; EPHEDrine (Pressors)* 50 MG/ML VIAL ONE; Glycopyrrolate IV* 0.2 MG/ML 1 ML VIAL ONE; HYDROcodone/ACETAMIN 5-325 MG* 1 TAB ONE; HYDROcodone/ACETAMIN 5-325 MG* 1 TAB PO PRN; Lidocaine 2% PF * 5 ML VIAL ONE; Metoclopramide IV* 5 MG/ML 2 ML VIAL IV SLOW PU ONE; Metoclopramide IV* 5 MG/ML 2 ML VIAL ONE; Metoprolol Tartrate IV* 1 MG/ML 5 ML VIAL ONE; Midazolam* 1 MG/ML 2 ML VIAL (2 MG) ONE; Morphine VIAL* 10 MG/ML 1 ML VIAL ONE; Naloxone* 0.4 MG/ML 1 ML VIAL IV PRN; Neostigmine Methylsulfate* 2 MG/2 ML SYRINGE ONE; Ondansetron INJ* 2 MG/ML VIAL ONE; Propofol* 10 MG/ML 20 ML BTL IV PUSH ONE; Rocuronium* 10 MG/ML VIAL ONE; Sugammadex * 200 MG/2 ML VIAL IV PUSH ONE; ceFAZolin 2 GM PREMIX in ORs 2 GM/50 ML BAG IVPB ONE; fentaNYL* 50 MCG/ML 2 ML VIAL (100 MCG VIAL) IV PRN; fentaNYL* 50 MCG/ML 2 ML VIAL (100 MCG VIAL) ONE; fentaNYL* 50 MCG/ML 5 ML VIAL (250 MCG VIAL) ONE; oxyCODONE/Acetamin 5/325 MG* TAB PO PRN
[2017-12-11 11:21] VITALS: BP 126/74
--- NOTE | 2017-12-11 23:42 | OP ---
CC: Dr. Frederick Salinas, [facility] * DATE OF OPERATION: 12/11/17 - [facility] DATE OF : 54 SURGEON: Allen Brewer MD FACILITY TECHNICIAN: Nga Logan NP ANESTHESIOLOGIST: Javier Rodriguez MD ANESTHESIA: General with local. PRE-OP DIAGNOSES: 1. Right upper quadrant abdominal pain. 2. Biliary dyskinesia. 3. Gallbladder sludge. POST-OP DIAGNOSIS: OPERATIVE PROCEDURE: Laparoscopic cholecystectomy. COMPLICATIONS: None. DRAINS: None. WOUND CLASSIFICATION: 3. SPECIMEN: Gallbladder. DESCRIPTION OF PROCEDURE: Written informed consent was obtained, the abdomen was marked with indelible ink and preoperative antibiotics were administered. The patient was taken to the operating room and placed in a supine position. Sequential compression devices and a warming blanket were applied. General anesthesia was administered and the abdomen was prepped and draped in the usual sterile fashion. A time-out verification was completed. A small vertical incision was made several fingerbreadths above the umbilicus and the peritoneal cavity was entered under direct vision. A 12-mm blunt port was inserted and the abdomen was insufflated to 15 mmHg. Under direct vision, an 11-mm epigastric port was placed and two 5-mm ports were placed in the right side of the abdominal wall. Gallbladder was identified. There were some omental adhesions and it was somewhat distended, but we were able to grasp this and elevate it up over the liver bed. It should be noted that I did make a small rent in the gallbladder upon grasping and initially there was some spillage of bile, but this was adequately irrigated and suctioned. There were no stones that were spilled intraabdominally. With care, the infundibulum of the gallbladder was identified and the thickened peritoneum along the medial and lateral aspects of the gallbladder was then taken down sharply to expose the cystic duct and artery as I entered the gallbladder. I took a considerable portion of the inferior part of the gallbladder off the liver bed using the critical view technique to assure myself of these structures. The cystic duct did not appear to be dilated and it was of expected caliber. It also should be noted that there were some adhesions and chronic changes consistent with previous biliary tract disease. A cystic duct and artery were then doubly clipped and divided. The gallbladder was removed from the liver bed using cautery and brought out through the umbilical incision with an EndoCatch bag. The right upper quadrant was irrigated until clear. Hemostasis was assured. All ports removed under direct vision of the camera. It should be noted that there was some bleeding from the right upper quadrant more medial 5-mm port and I placed a single 0 Vicryl suture through into abdominal wall using the Endo Close needle under direct vision. The umbilical incision was then close with interrupted 0 Vicryl suture. The skin at all 4 incisions was approximated with subcuticular 4-0 Vicryl suture. Steri-Strips and sterile dressings were applied. The patient tolerated the procedure well and was taken to the recovery room in stable condition. [id number]/[facility] #: [id number] ARNEL
== END | disposition home or self-care (01) ==
LOC: OR 06:07
PROVIDERS: ATTEND Surgery
DX: K80.10 Calculus of gallbladder with chronic cholecystitis without obstruction (principal); E78.5 Hyperlipidemia, unspecified; N18.9 Chronic kidney disease, unspecified; E11.9 Type 2 diabetes mellitus without complications; I12.9 Hypertensive chronic kidney disease with stage 1 through stage 4 chronic kidney disease, or unspecified chronic kidney disease; Z79.84 Long term (current) use of oral hypoglycemic drugs; E66.09 Other obesity due to excess calories
CPT/HCPCS: 88304; J0690; J1240; J2250; J2270; J2405; J2704; J2765; J3010; J3490

== ENCOUNTER 2018-05-24 15:23 | Emergency (ER) | payer MEDICARE, OTHER ==
[2018-05-24 18:46] LABS: ABS Basophils 0.1 10^3/ul (0-0.2); ABS Eosinophils 0.1 10^3/ul (0-0.6); ABS Lymphocytes 2.7 10^3/ul (1.0-4.8); ABS Monocytes 0.7 10^3/ul (0-0.8); ABS Neutrophils 7.4 10^3/ul (1.5-7.7); ABS Nucleated RBC 0 10^3/ul; Eosinophil % 0.7 %; Hematocrit 42 % (33-41); Hemoglobin 13.8 g/dL (12.0-16.0); Lymphocyte % 24.4 %; Mean Corpuscular HGB Conc 33 g/dL (31-36); Mean Corpuscular Hemoglobin 31 pg (27-31); Mean Corpuscular Volume 92 fL (80-97); Nucleated Red Blood Cells % 0.1; Platelet Count 225 10^3/uL (150-450); Red Blood Count 4.51 10^6 /uL (3.70-4.87); Red Cell Distribution Width 14 % (10.5-15); White Blood Count 10.9 10^3/uL (3.5-10.8)
[2018-05-24 19:06] LABS: Albumin 4.2 g/dL (3.2-5.2); Albumin/Globulin Ratio 1.1 (1-3); BUN/Creatinine Ratio 23.4 (8-20); EGFR African American 43.7 (>60); EGFR Non-African American 36.1 (>60); Globulin 3.9 g/dL (2-4); Potassium 4.9 mmol/L (3.5-5.0); Total Bilirubin 0.4 mg/dL (0.2-1.0); Total Protein 8.1 g/dL (6.4-8.9)
--- NOTE | 2018-05-24 19:37 | ED ---
Dizziness - HPI Summary HPI Summary: Pt is a 68 y/o female who presents to the ED c/o dizziness. At 7:00 this morning she became dizzy and near-syncopal with a headache. This afternoon she then began to have diarrhea with intermittent abdominal pain, as per nurses note. Pt has HTN and is currently on 25 mg Hydrochlorothiazide, 25 mg Metoprolol , and 10 mg Lisinopril every morning. She denies checking her BP prior to taking her medications this morning. Pt denies any bloody stool, melena, or dehydration. As per daughter, she was hypotensive during her last hospitalization in November 2017. The cause was thought to be the dosages of her HTN medications, however her PCP did not change her medications after this. BP while in room: 92/65. - History Of Current Complaint Chief Complaint: EDDizziness Stated Complaint: LOW BP PER DAUGHTER Time Seen by Provider: 05/24/18 19:30 Hx Obtained From: Patient, Family/Teaching Associate - Daughter Onset/Duration: Still Present Timing: Hours - 7:00 this morning Character: Dizzy Associated Signs And Symptoms: Positive: Other: - headache. Negative: Blood In Stool Related History: Similar Episode/Dx as - hx hypotension November 2017 - Allergies/Home Medications Allergies/Adverse Reactions: Allergies Allergy/AdvReac Type Severity Reaction Status Date / Time lactase [From Dairy Aid] Allergy GI Upset Verified 05/24/18 15:48 PMH/Surg Hx/FS Hx/Imm Hx Endocrine/Hematology History: Reports: Hx Diabetes - TYPE II-ORAL MEDICATION FOR Cardiovascular History: Reports: Hx Hypertension - ON MEDICATION FOR Respiratory History: Denies: Hx Asthma GI History: Reports: Hx Gastroesophageal Reflux Disease - ON MEDICATION FOR History: Reports: Hx Acute Renal Failure Denies: Other Problems/Disorders - PATIENT DENIES Sensory History: Reports: Hx Contacts or Glasses - GLASSES Denies: Hx Hearing Aid Opthamlomology History: Reports: Hx Contacts or Glasses - GLASSES - Surgical History Surgery Procedure, Year, and Place: Tubal Ligation - approximately 1984, [facility] Hx Anesthesia Reactions: No Infectious Disease History: No Infectious Disease History: Denies: Hx of Known/Suspected MRSA, Traveled Outside the [place] in Last 30 Days - Family History Known Family History: Negative: Diabetes - Social History Alcohol Use: None Hx Substance Use: No Substance Use Type: Reports: None Hx Tobacco Use: No Smoking Status (MU): Never Smoked Tobacco Have You Smoked in the Last Year: No Review of Systems Negative: Other - dehydration Negative: Other - bloody stool, melena Neurological: Other - Dizziness Positive: Headache, Syncope - near-syncope All Other Systems Reviewed And Are Negative: Yes Physical Exam - Summary Physical Exam Summary: VITAL SIGNS: Reviewed. GENERAL: Patient is a well-developed and nourished FEMALE who is lying comfortable in the stretcher. Patient is not in any acute respiratory distress. HEAD AND FACE: No signs of trauma. No ecchymosis, hematomas or skull depressions. No sinus tenderness. EYES: PERRLA, EOMI x 2, No injected conjunctiva, no nystagmus. EARS: Hearing grossly intact. Ear canals and tympanic membranes are within normal limits. MOUTH: Oropharynx within normal limits. NECK: Supple, trachea is midline, no adenopathy, no JVD, no carotid bruit, no c- spine tenderness, neck with full ROM. CHEST: Symmetric, no tenderness at palpation LUNGS: Clear to auscultation bilaterally. No wheezing or crackles. CVS: Regular rate and rhythm, S1 and S2 present, no murmurs or gallops appreciated. ABDOMEN: Soft, non-tender. No signs of distention. No rebound no guarding, and no masses palpated. Bowel sounds are normal. EXTREMITIES: FROM in all major joints, no edema, no cyanosis or clubbing. NEURO: Alert and oriented x 3. No acute neurological deficits. Speech is normal and follows commands. SKIN: Dry and warm Triage Information Reviewed: Yes Vital Signs On Initial Exam: Initial Vitals Temp Pulse Resp BP Pulse Ox 97.5 F 70 16 107/61 96 05/24/18 15:42 05/24/18 15:42 05/24/18 15:42 05/24/18 15:42 05/24/18 15:42 Vital Signs Reviewed: Yes Diagnostics - Vital Signs Vital Signs Temp Pulse Resp BP Pulse Ox 05/24/18 18:22 97.5 F 68 16 80/65 94 05/24/18 16:50 98.2 F 64 16 89/58 97 05/24/18 15:42 97.5 F 70 16 107/61 96 - Laboratory Lab Results: Lab Results 05/24/18 05/24/18 05/24/18 Range/Units 18:30 18:30 18:30 WBC 10.9 H (3.5-10.8) 10^3/uL RBC 4.51 (3.70-4.87) 10^6 /uL Hgb 13.8 (12.0-16.0) g/dL Hct 42 H (33-41) % MCV 92 (80-97) fL MCH 31 (27-31) pg MCHC 33 (31-36) g/dL RDW 14 (10.5-15) % Plt Count 225 (150-450) 10^3/uL MPV 9.0 (7.4-10.4) fL Neut % (Auto) 68.2 % Lymph % (Auto) 24.4 % [place] % (Auto) 6.2 % Eos % (Auto) 0.7 % Baso % (Auto) 0.5 % Absolute Neuts (auto) 7.4 (1.5-7.7) 10^3/ul Absolute Lymphs (auto) 2.7 (1.0-4.8) 10^3/ul Absolute Monos (auto) 0.7 (0-0.8) 10^3/ul Absolute Eos (auto) 0.1 (0-0.6) 10^3/ul Absolute Basos (auto) 0.1 (0-0.2) 10^3/ul Absolute Nucleated RBC 0 10^3/ul Nucleated RBC % 0.1 Sodium 137 (135-145) mmol/L Potassium 4.9 (3.5-5.0) mmol/L Chloride 101 (101-111) mmol/L Carbon Dioxide 25 (22-32) mmol/L Anion Gap 11 (2-11) mmol/L BUN 34 H (6-24) mg/dL Creatinine 1.45 H (0.51-0.95) mg/dL Est GFR ( Amer) 43.7 (>60) Est GFR (Non-Af Amer) 36.1 (>60) BUN/Creatinine Ratio 23.4 H (8-20) Glucose 136 H (70-100) mg/dL Lactic Acid 2.5 H* (0.5-2.0) mmol/L Calcium 10.0 (8.6-10.3) mg/dL Total Bilirubin 0.40 (0.2-1.0) mg/dL AST 21 (13-39) U/L ALT 28 (7-52) U/L Alkaline Phosphatase 46 (34-104) U/L Troponin I 0.00 (<0.04) ng/mL Total Protein 8.1 (6.4-8.9) g/dL Albumin 4.2 (3.2-5.2) g/dL Globulin 3.9 (2-4) g/dL Albumin/Globulin Ratio 1.1 (1-3) Result Diagrams: 05/24/18 18:30 05/24/18 18:30 Lab Statement: Any lab studies that have been ordered have been reviewed, and results considered in the medical decision making process. - Radiology CXR Radiology Interpretation Completed By: Radiologist Summary of Radiographic Findings: NO ACTIVE CARDIOPULMONARY DISEASE. ED physician reviewed radiology report. - EKG 18:37 Cardiac Rate: NL - 64 bpm EKG Rhythm: Sinus Rhythm Summary of EKG Findings: Normal axis. Normal interval. No ischemic changes. Re-Evaluation - Re-Evaluation First Eval Re-Evaluation Time: 20:55 Change: Improved Comment: Pt feels much better, and her BP is now elevated to a normal level. Dizzy Course/Dx - Course Course Of Treatment: Pt is a 68 y/o female who presents to the ED c/o dizziness , headache, and near-syncope. She denies any melena or dehydration. Pt has HTN and is currently on 25 mg Hydrochlorothiazide, 25 mg Metoprolol, and 10 mg Lisinopril every morning. A physical exam was normal. A CXR was negative. An EKG was normal with a rate of 64 bpm. Bloodwork was essentially normal. Pt felt much better and her BP improved after receiving fluids. Her dizziness is most likely secondary to her hypotension, which is due to her over-medication for HTN. Pt is discharged with a final dx of drug-induced hypotension. She was given instructions to stop her Toprol XL and monitor her BP. Pt is agreeable with this plan. - Diagnoses Provider Diagnoses: Drug-induced hypotension Discharge - Sign-Out/Discharge Documenting (check all that apply): Patient Departure - Discharge Patient Received Moderate/Deep Sedation with Procedure: No - Discharge Plan Condition: Improved Disposition: HOME Patient Education Materials: Hypotension (ED) Referrals: Brad TARIQ,Frederick Miller [Primary Care Provider] - (1-2 days) Additional Instructions: Stop taking your Toprol XL. Monitor your blood pressure. PLEASE RETURN TO THE ED IMMEDIATELY FOR WORSENING OR CONCERNING SYMPTOMS. - Attestation Statements Document Initiated by Scribe: Yes Documenting Scribe: Marie Lehman Provider For Whom Scribe is Documenting (Include Credential): Giselle Sahu MD Scribe Attestation: Marie Monterroso, scribed for Giselle Sahu MD on 05/24/18 at 2105. Status of Scribe Document: Ready
[2018-05-24] MEDS ORDERED: NS 0.9% 1000 ML** 2,000 ML IV ONE (19:39)
[2018-05-24 21:03] VITALS: BP 115/68
== END 2018-05-24 21:05 | disposition home or self-care (01) ==
LOC: ED 15:23
DX: I15.8 Other secondary hypertension (principal); R19.7 Diarrhea, unspecified; R51 Headache; K21.9 Gastro-esophageal reflux disease without esophagitis; E11.9 Type 2 diabetes mellitus without complications; Z79.84 Long term (current) use of oral hypoglycemic drugs
CPT/HCPCS: 36415; 71045; 80053; 83605; 84484; 85025; 93005; 96374; 99283